=== PATIENT | female | born 1955 ===

== ENCOUNTER 2023-06-21 08:07 | Outpatient (CLI) | payer OTHER | END 2023-06-21 08:09 | disposition home or self-care (01) | LOC: SONOGRAMA 08:07 | PROVIDERS: ATTEND Pathology Anatomic Pathology & Clinical Pathology | DX: C73 Malignant neoplasm of thyroid gland (principal); D34 Benign neoplasm of thyroid gland; E04.9 Nontoxic goiter, unspecified ==